=== PATIENT | female | born 1960 | race Caucasian/White ===

== ENCOUNTER 2019-01-02 18:20 | Emergency (ER) | payer SELFPAY ==
[2019-01-02 19:29] LABS: Urine Blood TRACE (NEG); Urine Glucose NEGATIVE (NEG); Urine Protein NEGATIVE (NEG); Urine Specific Gravity <1.005 (1.005-1.030)
[2019-01-02 19:40] LABS: Absolute Lymphocytes (CBC) 2.4 K/uL (0.7-4.9); Absolute Monocytes 0.4 K/uL (0.1-1.3); Absolute Neutrophil 3.7 K/uL (1.8-8.0); Eosinophils % 2.8 % (0-4.4); Hematocrit 39.9 % (36.0-45.0); MPV 8.2 fL (7.6-11.3); RBC Red Blood Cell Count 4.45 M/uL (3.86-4.86)
--- NOTE | 2019-01-02 19:54 | RAD REPORT ---
EXAM DESCRIPTION: Allyson Single View01/02/2019 7:22 pm CLINICAL HISTORY: Chest pain COMPARISON: 2017 FINDINGS: Lungs are hyperaerated. The lungs appear clear of acute infiltrate. The heart is normal size IMPRESSION: No acute abnormalities displayed
[2019-01-02 20:04] LABS: BUN Blood Urea Nitrogen 7 mg/dL (7-18); Bicarbonate 28 mmol/L (21-32); Glucose Level 90 mg/dL (74-106); Potassium 3.3 mmol/L (3.5-5.1); Sodium Level 142 mmol/L (136-145); Troponin (Emerg Dept Use Only) < 0.02 ng/mL (0.0-0.045)
--- NOTE | 2019-01-02 20:13 | RAD REPORT ---
EXAM DESCRIPTION: USExtremity Venous Uni Ltd01/02/2019 8:07 pm CLINICAL HISTORY: Right leg pain COMPARISON: None. FINDINGS: Right common femoral, superficial femoral, popliteal and right posterior tibial veins are compressible and demonstrate augmentation. Doppler demonstrates good flow. IMPRESSION: No evidence of deep venous thrombosis involving the right lower extremity.
--- NOTE | 2019-01-02 21:45 | EDPHYS ---
Physician Documentation [facility] Name: Rosalba Ivy Age: 58 yrs Sex: Female : 1960 Arrival Date: 01/02/2019 Time: 18:21 Bed 7 Private MD: ED Physician Rory Tong HPI: 01/02 22:06 This 58 yrs old Female presents to ER via Ambulatory with complaints of Chest gs Pain, Hip Pain, Leg Pain. 22:06 The patient or guardian reports chest pain that is located primarily in the anterior gs chest wall. Onset: 2 week(s) ago. The pain does not radiate. Associated signs and symptoms: Pertinent negatives: diaphoresis, shortness of breath. The chest pain is described as dull, a heaviness. Duration: The patient or guardian reports multiple episodes, that are intermittent, that wax and wane, with no pattern. Modifying factors: The symptoms are alleviated by nothing. the symptoms are aggravated by nothing. Severity of pain: At its worst the pain was moderate in the emergency department the pain has resolved and did so earlier today. The patient has experienced similar episodes in the past, a few times. also says has pain swelling r lower extremity says she is concerned for dvt. 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 - Social history:: Smoking status: Patient/guardian denies using tobacco, the patient reports quitting approximately 6 years ago. - Ebola Screening: : Patient denies exposure to infectious person Patient denies travel to an Ebola-affected area in the 21 days before illness onset. ROS: 22:06 All other systems are negative. gs Exam: 22:06 Head/Face: Normocephalic, atraumatic. Eyes: Pupils equal round and reactive to light, gs extra-ocular motions intact. Lids and lashes normal. Conjunctiva and sclera are non-icteric and not injected. Cornea within normal limits. Periorbital areas with no swelling, redness, or edema. ENT: Nares patent. No nasal discharge, no septal abnormalities noted. Tympanic membranes are normal and external auditory canals are clear. Oropharynx with no redness, swelling, or masses, exudates, or evidence of obstruction, uvula midline. Mucous membranes moist. Neck: Trachea midline, no thyromegaly or masses palpated, and no cervical lymphadenopathy. Supple, full range of motion without nuchal rigidity, or vertebral point tenderness. No Meningismus. Chest/axilla: Normal chest wall appearance and motion. Nontender with no deformity. No lesions are appreciated. Cardiovascular: Regular rate and rhythm with a normal S1 and S2. No gallops, murmurs, or rubs. Normal PMI, no JVD. No pulse deficits. Respiratory: Lungs have equal breath sounds bilaterally, clear to auscultation and percussion. No rales, rhonchi or wheezes noted. No increased work of breathing, no retractions or nasal flaring. Abdomen/GI: Soft, non-tender, with normal bowel sounds. No distension or tympany. No guarding or rebound. No evidence of tenderness throughout. Back: No spinal tenderness. No costovertebral tenderness. Full range of motion. Skin: Warm, dry with normal turgor. Normal color with no rashes, no lesions, and no evidence of cellulitis. Neuro: Awake and alert, GCS 15, oriented to person, place, time, and situation. Cranial nerves II-XII grossly intact. Motor strength 5/5 in all extremities. Sensory grossly intact. Cerebellar exam normal. Normal gait. 22:06 Constitutional: The patient appears alert, awake. 22:06 Musculoskeletal/extremity: ROM: no acute changes, Pulses: are normal with no appreciated deficits, Sensation intact. DVT Exam: tenderness, that is mild, of the right leg. 22:06 ECG was reviewed by the Attending Physician. Vital Signs: 18:27 BP 140 / 77; Pulse 77; Resp 16; Temp 97.4(TE); Pulse Ox 99% ; Height 5 ft. 6 in. ss (167.64 cm); Pain 4/10; 19:00 BP 135 / 75; Pulse 73; Resp 15; Pulse Ox 100% ; bp 19:28 BP 120 / 90; Pulse 72; Resp 12; Pulse Ox 98% on R/A; mt 20:29 BP 140 / 73; Pulse 72; Resp 21; Pulse Ox 97% on R/A; tl2 21:38 BP 123 / 64; Pulse 62; Resp 13; Pulse Ox 95% on R/A; tl2 22:05 BP 137 / 83; Pulse 62; Resp 10; Pulse Ox 98% on R/A; mt MDM: 19:03 Patient medically screened. 22:06 Differential diagnosis: acute myocardial infarction, coronary artery disease chest wall gs pain, dvt. Data reviewed: vital signs, nurses notes. Data reviewed: lab test result(s), EKG, radiologic studies. Counseling: I had a detailed discussion with the patient and/or guardian regarding: the historical points, exam findings, and any diagnostic results supporting the discharge/admit diagnosis, lab results, radiology results, the need for outpatient follow up. 01/02 19:04 Order name: Urine Dipstick--Ancillary (enter results) [facility] 01/02 19:07 Order name: Troponin (emerg Dept Use Only) 01/02 19:07 Order name: CBC with Diff 01/02 19:07 Order name: Basic Metabolic Panel 01/02 19:29 Order name: Urine Dipstick-Ancillary; Complete Time: 19:46 EDCA 01/02 19:50 Order name: CBC with Automated Diff; Complete Time: 21:41 EDCA 01/02 18:43 Order name: EKG; Complete Time: 18:44 01/02 18:43 Order name: EKG - Nurse/Tech; Complete Time: 18:43 01/02 19:07 Order name: XRAY Chest (1 view) 01/02 19:46 Order name: US Extremity Venous Unilateral Ltd 01/02 19:55 Order name: RAD; Complete Time: 21:41 EDMS 01/02 20:05 Order name: Basic Metabolic Panel; Complete Time: 21:41 EDMS 01/02 20:05 Order name: Troponin (Emerg Dept Use Only); Complete Time: 21:41 EDMS 01/02 20:15 Order name: US; Complete Time: 21:41 EDMS 01/02 19:07 Order name: Cardiac monitoring; Complete Time: 19:30 01/02 19:07 Order name: IV Saline Lock; Complete Time: 19:30 01/02 19:07 Order name: Labs collected and sent; Complete Time: :30 01/02 19:07 Order name: O2 Per Protocol; Complete Time: :30 01/02 19:07 Order name: O2 Sat Monitoring; Complete Time: 19:31 gs EC:06 Rate is 76 beats/min. Rhythm is regular. [place] interval is normal. QRS interval is normal. gs QT interval is normal. T waves are Flattened. Clinical impression: NSR w/ Non-specific ST/T Changes. Interpreted by me. Administered Medications: No medications were administered Disposition: 01/02/19 21:45 Discharged to Home. Impression: Chest pain, unspecified. - Condition is Stable. - Discharge Instructions: Nonspecific Chest Pain. - Medication Reconciliation Form, Thank You Letter, Antibiotic Education, Prescription Opioid Use form. - Follow up: Private Physician; When: 2 - 3 days; Reason: Re-evaluation by your physician. Follow up: Tay Rivera DO; When: 2 - 3 days; Reason: Re-evaluation by your physician. Signatures: Dispatcher [employer] EDMS Shi Salcido RN RN ss Caitlin Blanco RN RN tl2 Rory Tong MD MD Corrections: (The following items were deleted from the chart) 22:27 21:45 01/02/2019 21:45 Discharged to Home. Impression: Chest pain, unspecified. tl2 Condition is Stable. Forms are Medication Reconciliation Form, Thank You Letter, Antibiotic Education, Prescription Opioid Use. Follow up: Private Physician; When: 2 - 3 days; Reason: Re-evaluation by your physician. Follow up: Tay Rivera; When: 2 - 3 days; Reason: Re-evaluation by your physician. gs
--- NOTE | 2019-01-02 21:45 | ER ---
Nurse's Notes [facility] Name: Rosalba Ivy Age: 58 yrs Sex: Female : 1960 Arrival Date: 01/02/2019 Time: 18:21 Bed 7 Private MD: Diagnosis: Chest pain, unspecified Presentation: 01/02 18:26 Presenting complaint: Patient states: intermittent CP x 4-5 days. Pt also reports R hip ss pain that radiates down to R ankle that began 1 day ago with mild swelling. Transition of care: patient was not received from another setting of care. Onset of symptoms was December 28, 2018. Risk Assessment: Do you want to hurt yourself or someone else? Patient reports no desire to harm self or others. Initial Sepsis Screen: Does the patient meet any 2 criteria? No. Patient's initial sepsis screen is negative. Does the patient have a suspected source of infection? No. Patient's initial sepsis screen is negative. Care prior to arrival: None. 18:26 Method Of Arrival: Ambulatory ss 18:26 Acuity: BERNICE 3 ss Triage Assessment: 18:39 General: Appears in no apparent distress. uncomfortable, Behavior is cooperative, bp appropriate for age, anxious. Pain: Complains of pain in chest. 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 - Social history:: Smoking status: Patient/guardian denies using tobacco, the patient reports quitting approximately 6 years ago. - Ebola Screening: : Patient denies exposure to infectious person Patient denies travel to an Ebola-affected area in the 21 days before illness onset. Screenin:39 Abuse screen: Denies threats or abuse. Denies injuries from another. Nutritional bp screening: No deficits noted. Tuberculosis screening: No symptoms or risk factors identified. Fall Risk None identified. Assessment: 18:30 General: Appears in no apparent distress. comfortable, Behavior is cooperative, bp appropriate for age, anxious. Pain: Complains of pain in chest Pain does not radiate. Pain began 2-3 days ago. Neuro: Level of Consciousness is awake, alert, obeys commands, Oriented to person, place, time, situation, Appropriate for age. Cardiovascular: Rhythm is sinus rhythm. Respiratory: Airway is patent Respiratory effort is even, unlabored, Respiratory pattern is regular, symmetrical. GI: No signs and/or symptoms were reported involving the gastrointestinal system. : No signs and/or symptoms were reported regarding the genitourinary system. EENT: No deficits noted. Derm: No deficits noted. Musculoskeletal: Circulation, motion, and sensation intact. Range of motion: intact in all extremities. 19:33 General: Appears in no apparent distress. uncomfortable, Behavior is calm, cooperative, tl2 appropriate for age. Pain: Complains of pain in chest Pain does not radiate. Neuro: Level of Consciousness is awake, alert, obeys commands, Oriented to person, place, time, situation. Cardiovascular: Heart tones S1 S2 present. Respiratory: Airway is patent Respiratory effort is even, unlabored, Respiratory pattern is regular, symmetrical. GI: No signs and/or symptoms were reported involving the gastrointestinal system. : No signs and/or symptoms were reported regarding the genitourinary system. Derm: Skin is pink, warm \T\ dry. 21:38 Reassessment: Patient appears in no apparent distress at this time. Patient and/or tl2 family updated on plan of care and expected duration. Pain level reassessed. Patient is alert, oriented x 3, equal unlabored respirations, skin warm/dry/pink. 22:25 Reassessment: Patient appears in no apparent distress at this time. Patient and/or tl2 family updated on plan of care and expected duration. Pain level reassessed. Patient is alert, oriented x 3, equal unlabored respirations, skin warm/dry/pink. pt verbalized understanding of discharge instructions, need for follow up Patient states feeling better. Vital Signs: 18:27 BP 140 / 77; Pulse 77; Resp 16; Temp 97.4(TE); Pulse Ox 99% ; Height 5 ft. 6 in. ss (167.64 cm); Pain 4/10; 19:00 BP 135 / 75; Pulse 73; Resp 15; Pulse Ox 100% ; bp 19:28 BP 120 / 90; Pulse 72; Resp 12; Pulse Ox 98% on R/A; mt 20:29 BP 140 / 73; Pulse 72; Resp 21; Pulse Ox 97% on R/A; tl2 21:38 BP 123 / 64; Pulse 62; Resp 13; Pulse Ox 95% on R/A; tl2 22:05 BP 137 / 83; Pulse 62; Resp 10; Pulse Ox 98% on R/A; mt Vitals: 21:38 Cardiac Rhythm Assessment Sinus rhythm. tl2 ED Course: 18:21 Patient arrived in ED. as 18:25 Narayan Tompkins, RN is Primary Nurse. bp 18:26 Triage completed. ss 18:27 Arm band placed on right wrist. ss 18:39 Patient has correct armband on for positive identification. Bed in low position. Call bp light in reach. Side rails up X2. inclusion manager on. Pulse ox on. NIBP on. 18:57 Rory Tong MD is Attending Physician. gs 18:58 Urine collected: clean catch specimen, clear, jese colored, EKG done, by ED staff, jb1 reviewed by Dagoberto Steiner MD. 19:17 X-ray completed. Portable x-ray completed in exam room. Patient tolerated procedure ag1 well. 19:31 Inserted saline lock: 22 gauge in right wrist, using aseptic technique. Blood tl2 collected. Patient maintains SpO2 saturation greater than 95% on room air. 20:05 Ultrasound completed. Patient tolerated well. aa4 20:14 Primary Nurse role handed off by Narayan Tompkins RN ed1 20:28 Caitlin Blanco RN is Primary Nurse. tl2 21:43 Tay Rivera DO is Referral Physician. gs 22:25 No provider procedures requiring assistance completed. IV discontinued, intact, tl2 bleeding controlled, No redness/swelling at site. Pressure dressing applied. Administered Medications: No medications were administered Outcome: 21:45 Discharge ordered by . gs 22:25 Discharged to home ambulatory. tl2 22:25 Condition: stable 22:25 Discharge instructions given to patient, Instructed on discharge instructions, follow up and referral plans. Demonstrated understanding of instructions, follow-up care. 22:27 Patient left the ED. tl2 Signatures: Josue Costa jb1 Ximena Remy Amanda aa4 Shi Salcido, RN RN ss Dino, Tia, RN RN ed1 Lou Hobson1 Caitlin Blanco, RN RN tl2 Antonieta Sears mt, Gregory, MD MD gs Narayan Tompkins, RN RN bp
[2019-01-02 23:01] VITALS: TEMP 97.4
[2019-01-02 23:07] VITALS: BP 137/83; O2SAT 98
--- NOTE | 2019-01-03 08:55 | EKG ---
Test Date: 2019-01-02 Test Time: 18:38:26 Piano Maker: MELVIN MEASUREMENT RESULTS: Intervals: Rate: 72 NH: 148 QRSD: 78 QT: 364 QTc: 398 [place]: P: 73 NH: 148 QRS: 25 T: 19 INTERPRETIVE STATEMENTS: Normal sinus rhythm Normal ECG Compared to ECG 03/27/2017 18:24:15 Sinus bradycardia no longer present Electronically Signed On 01-03-19 08:55:04 JEWELRY BEARING MAKER by Yunier Ramírez
== END 2019-01-02 22:27 | disposition home or self-care (01) ==
LOC: ER 18:20
DX: R07.9 Chest pain, unspecified (principal); J44.9 Chronic obstructive pulmonary disease, unspecified; Z88.0 Allergy status to penicillin; Z88.1 Allergy status to other antibiotic agents; Z88.5 Allergy status to narcotic agent; Z88.6 Allergy status to analgesic agent
CPT/HCPCS: 36415; 71045; 80048; 81003; 84484; 85025; 93005; 93971; 99285

== ENCOUNTER 2019-04-04 19:54 | Emergency (ER) | payer SELFPAY ==
[2019-04-04] MEDS ORDERED: IPRATROPIUM BROM 0.5MG/2.5ML ONE (22:17)
[2019-04-04] MEDS ORDERED: ALBUTEROL 2.5 MG/3 ML NEB SOL ONE (22:17)
[2019-04-04 22:38] LABS: Absolute Lymphocytes (CBC) 3.4 K/uL (0.7-4.9); Absolute Monocytes 0.5 K/uL (0.1-1.3); Absolute Neutrophil 3.5 K/uL (1.8-8.0); Basophils % 1.3 % (0-1.3); Eosinophils % 5.9 % (0-4.4); Hematocrit 38.5 % (36.0-45.0); Lymphocytes % 42.9 % (15.3-44.8); MPV 8.5 fL (7.6-11.3); Monocytes % 6.1 % (3.3-12.3); RBC Red Blood Cell Count 4.37 M/uL (3.86-4.86)
[2019-04-04 22:42] LABS: Protime INR 1.01
[2019-04-04 23:55] LABS: ALT/SGPT 20 U/L (12-78); AST/SGOT 23 U/L (15-37); Albumin 3.7 g/dL (3.4-5.0); Alkaline Phosphatase 101 U/L (45-117); BUN Blood Urea Nitrogen 7 mg/dL (7-18); Bicarbonate 28 mmol/L (21-32); Bilirubin Direct < 0.1 mg/dL (0-0.2); Bilirubin Total 0.6 mg/dL (0.2-1.0); Glucose Level 91 mg/dL (74-106); Magnesium 2.3 mg/dL (1.8-2.4); NT PRO-BNP 34 pg/mL (<125); Potassium 3.7 mmol/L (3.5-5.1); Sodium Level 140 mmol/L (136-145); Troponin (Emerg Dept Use Only) < 0.02 ng/mL (0.0-0.045)
[2019-04-05] MEDS ORDERED: predniSONE 20 MG TAB ONE (00:28)
--- NOTE | 2019-04-05 01:05 | ER ---
Nurse's Notes [facility] Name: Rosalba Ivy Age: 58 yrs Sex: Female : 1960 Arrival Date: 04/04/2019 Time: 19:58 Bed 8 Private MD: Diagnosis: Chronic obstructive pulmonary disease with (acute) exacerbation Presentation: 04/04 19:59 Presenting complaint: Patient states: I have been worsening cough , congestion for the la1 last 6 weeks, I also have been feeling hot in the mornings and at night. I take my inhalers and breathing treatments but they are not helping as much as usual. Transition of care: patient was not received from another setting of care. Onset of symptoms was April 04, 2019. Risk Assessment: Do you want to hurt yourself or someone else? Patient reports no desire to harm self or others. Initial Sepsis Screen: Does the patient meet any 2 criteria? No. Patient's initial sepsis screen is negative. Does the patient have a suspected source of infection? No. Patient's initial sepsis screen is negative. Care prior to arrival: None. 19:59 Method Of Arrival: Ambulatory la1 19:59 Acuity: BERNICE 3 la1 Historical: - Allergies: 20:01 Codeine; la1 20:01 HYDROCODONE; la1 20:01 Levofloxacin; la1 20:01 METRONIDAZOLE; la1 20:01 PENICILLINS; la1 20:01 rocuronium; la1 20:01 TETRACYCLINES; la1 20:01 tordal; la1 - PMHx: 20:01 COPD; Emphysema; la1 - Immunization history:: Adult Immunizations up to date. - Social history:: Smoking status: Patient uses tobacco products, denies chronic smoking, but will smoke occasionally. - Ebola Screening: : No symptoms or risks identified at this time. Screenin:40 Abuse screen: Denies threats or abuse. Nutritional screening: No deficits noted. ea Tuberculosis screening: No symptoms or risk factors identified. Fall Risk None identified. Assessment: 21:18 General: Appears uncomfortable, Behavior is calm, cooperative, appropriate for age. ea Pain: Complains of pain in body aches. Neuro: Level of Consciousness is awake, alert, obeys commands, Oriented to person, place, time, situation. Cardiovascular: Patient's skin is warm and dry. Respiratory: Airway is patent Respiratory effort is even, unlabored, Respiratory pattern is regular, symmetrical, Breath sounds with rhonchi bilaterally. Parent/caregiver reports the patient having shortness of breath on exertion cough that is productive, hacking. GI: Abdomen is non-distended. EENT: Reports nasal congestion. Derm: Skin is pink, warm \T\ dry. 22:00 Reassessment: Patient and/or family updated on plan of care and expected duration. Pain ea level reassessed. Patient is alert, oriented x 3, equal unlabored respirations, skin warm/dry/pink. 23:00 Reassessment: Patient and/or family updated on plan of care and expected duration. Pain ea level reassessed. Patient is alert, oriented x 3, equal unlabored respirations, skin warm/dry/pink. 04/05 00:15 Reassessment: Patient appears in no apparent distress at this time. Patient is alert, rr5 oriented x 3, equal unlabored respirations, skin warm/dry/pink. much better compare before as verbalized by the patient Patient states symptoms have improved. 01:10 Reassessment: Patient appears in no apparent distress at this time. Patient is alert, rr5 oriented x 3, equal unlabored respirations, skin warm/dry/pink. discharge instruction given and explained without complaints made. Patient states feeling better. Patient states symptoms have improved. Vital Signs: 04/04 20:01 BP 158 / 82; Pulse 81; Resp 16; Temp 98.6; Pulse Ox 98% on R/A; Weight 58.97 kg; Height la1 5 ft. 5 in. (165.10 cm); 21:39 BP 128 / 58; Pulse 63; Resp 18; Pulse Ox 96% on R/A; ea 22:00 BP 126 / 60; Pulse 66; Resp 19; Pulse Ox 96% on R/A; ea 04/05 00:15 BP 121 / 60; Pulse 73; Resp 16; Pulse Ox 99% on R/A; rr5 01:10 BP 120 / 68; Pulse 67; Resp 20; Temp 97.9; Pulse Ox 98% on R/A; rr5 04/04 20:01 Body Mass Index 21.63 (58.97 kg, 165.10 cm) la1 ED Course: 04/04 19:58 Patient arrived in ED. es 20:00 Triage completed. la1 20:01 Arm band placed on left wrist. la1 21:34 Jorge A Rene, RN is Primary Nurse. rr5 21:35 Anuj Roa PA is PHCP. cp 21:35 Roland Lam MD is Attending Physician. cp 21:40 Patient has correct armband on for positive identification. Bed in low position. Call ea light in reach. Side rails up X 1. Adult w/ patient. 22:00 monitor and storage bin tender on. Pulse ox on. NIBP on. rr5 22:30 Initial lab(s) drawn, by me, by EMS personnel. Inserted saline lock: 20 gauge in left rr5 forearm, using aseptic technique. Blood collected. 22:38 XRAY Chest Pa And Lat (2 Views) In Process Unspecified. EDMT 04/05 01:00 No provider procedures requiring assistance completed. IV discontinued, intact, rr5 bleeding controlled, No redness/swelling at site. Pressure dressing applied. Administered Medications: 04/04 22:13 Drug: Albuterol - atroVENT (3:1) (2.5 mg - 0.5 mg) 3 ml Route: Nebulizer; ea 23:04 Follow up: Response: No adverse reaction 04/05 00:18 Drug: predniSONE 60 mg Route: PO; rr5 01:10 Follow up: Response: No adverse reaction rr5 Outcome: 01:04 Discharge ordered by MD. cp 01:10 Discharged to home ambulatory, with family. rr5 01:10 Condition: stable 01:10 Discharge instructions given to patient, Instructed on discharge instructions, follow up and referral plans. medication usage, Demonstrated understanding of instructions, follow-up care, medications, Prescriptions given X 1. 01:15 Patient left the ED. rr5 Signatures: Dispatcher [employer] EDMT Eliana Koehler Lee RN RN la1 Anuj Roa PA PA cp Antunez, Elena, RN RN Jorge A Rene, RN RN rr5
--- NOTE | 2019-04-05 01:05 | EDPHYS ---
Physician Documentation [facility] Name: Rosalba Ivy Age: 58 yrs Sex: Female : 1960 Arrival Date: 04/04/2019 Time: 19:58 Bed 8 Private MD: ED Physician Roland Lam HPI: 04/04 21:40 This 58 yrs old Female presents to ER via Ambulatory with complaints of cp Congestion, Fever, Breathing Difficulty. 21:40 The patient or guardian reports cough, that is intermittent. cp 21:40 Onset: The symptoms/episode began/occurred 6 week(s) ago. Associated signs and cp symptoms: Pertinent positives: fever, congestion, shortness of breath. Severity of symptoms: in the emergency department the symptoms are unchanged despite home interventions. Historical: - Allergies: 20:01 Codeine; la1 20:01 HYDROCODONE; la1 20:01 Levofloxacin; la1 20:01 METRONIDAZOLE; la1 20:01 PENICILLINS; la1 20:01 rocuronium; la1 20:01 TETRACYCLINES; la1 20:01 tordal; la1 - PMHx: 20:01 COPD; Emphysema; la1 - Immunization history:: Adult Immunizations up to date. - Social history:: Smoking status: Patient uses tobacco products, denies chronic smoking, but will smoke occasionally. - Ebola Screening: : No symptoms or risks identified at this time. ROS: 21:45 Constitutional: Negative for body aches, chills, fever, poor PO intake. cp 21:45 Eyes: Negative for injury, pain, redness, and discharge. cp 21:45 ENT: Negative for drainage from ear(s), ear pain, sore throat, difficulty swallowing, difficulty handling secretions. 21:45 Cardiovascular: Negative for chest pain, edema, palpitations. 21:45 Respiratory: Positive for cough, shortness of breath, wheezing. 21:45 Abdomen/GI: Negative for abdominal pain, nausea, vomiting, and diarrhea. 21:45 : Negative for urinary symptoms. 21:45 Skin: Negative for cellulitis, rash. 21:45 Neuro: Negative for altered mental status, headache, weakness. 21:45 All other systems are negative. Exam: 21:55 Constitutional: The patient appears in no acute distress, alert, awake, cp non-diaphoretic, non-toxic, well developed, well nourished. 21:55 Head/Face: Normocephalic, atraumatic. cp 21:55 Eyes: Pupils equal round and reactive to light, extra-ocular motions intact. Lids and lashes normal. Conjunctiva and sclera are non-icteric and not injected. Cornea within normal limits. Periorbital areas with no swelling, redness, or edema. ENT: Nares patent. No nasal discharge, no septal abnormalities noted. Tympanic membranes are normal and external auditory canals are clear. Oropharynx with no redness, swelling, or masses, exudates, or evidence of obstruction, uvula midline. Mucous membranes moist. Chest/axilla: Normal chest wall appearance and motion. Nontender with no deformity. No lesions are appreciated. 21:55 Cardiovascular: Rate: normal, Rhythm: regular, Edema: is not appreciated, JVD: is not appreciated. 21:55 Respiratory: the patient does not display signs of respiratory distress, Respirations: normal, no use of accessory muscles, no retractions, no splinting, no tachypnea, labored breathing, is not present, Breath sounds: decreased breath sounds, are not appreciated, stridor, is not appreciated, wheezing: is not appreciated. 21:55 Abdomen/GI: Inspection: abdomen appears normal, Palpation: abdomen is soft and non-tender, in all quadrants. 21:55 Back: pain, is absent, ROM is normal. 21:55 Skin: no rash present. 21:55 Neuro: Orientation: to person, place \T\ time. Mentation: is normal, Cerebellar function: is grossly normal, Motor: moves all fours, strength is normal, Sensation: is normal. 04/05 00:45 ECG was reviewed by the Attending Physician. cp Vital Signs: 04/04 20:01 BP 158 / 82; Pulse 81; Resp 16; Temp 98.6; Pulse Ox 98% on R/A; Weight 58.97 kg; Height la1 5 ft. 5 in. (165.10 cm); 21:39 BP 128 / 58; Pulse 63; Resp 18; Pulse Ox 96% on R/A; ea 22:00 BP 126 / 60; Pulse 66; Resp 19; Pulse Ox 96% on R/A; ea 04/05 00:15 BP 121 / 60; Pulse 73; Resp 16; Pulse Ox 99% on R/A; rr5 01:10 BP 120 / 68; Pulse 67; Resp 20; Temp 97.9; Pulse Ox 98% on R/A; rr5 04/04 20:01 Body Mass Index 21.63 (58.97 kg, 165.10 cm) la1 MDM: 04/04 21:35 Patient medically screened. 04/05 01:02 Data reviewed: vital signs, nurses notes, lab test result(s), EKG, radiologic studies, cp plain films. 01:02 Test interpretation: by ED physician or midlevel provider: ECG, plain radiologic cp studies. Counseling: I had a detailed discussion with the patient and/or guardian regarding: the historical points, exam findings, and any diagnostic results supporting the discharge/admit diagnosis, lab results, radiology results, the need for outpatient follow up, a family practitioner, to return to the emergency department if symptoms worsen or persist or if there are any questions or concerns that arise at home. Response to treatment: the patient's symptoms have markedly improved after treatment, VSS. Patient reports symptoms improved with breathing treatment. Will discharge to home for continued monitoring. 04/04 21:42 Order name: Basic Metabolic Panel 04/04 21:42 Order name: CBC with Diff 04/04 21:42 Order name: LFT's 04/04 21:42 Order name: Magnesium 04/04 21:42 Order name: NT PRO-BNP 04/04 21:42 Order name: PT-INR; Complete Time: 00:05 04/04 21:42 Order name: Troponin (emerg Dept Use Only); Complete Time: 00:05 04/04 21:42 Order name: Strep; Complete Time: 00:05 04/04 21:42 Order name: Basic Metabolic Panel; Complete Time: 00:05 EDAZ 04/05 00:05 Interpretation: Normal except: GFR 61. 04/04 21:42 Order name: CBC with Automated Diff; Complete Time: 00:05 EDAZ 04/05 00:05 Interpretation: Normal except: EOSINOPHIL % 5.9. cp 04/04 21:43 Order name: Liver (Hepatic) Function; Complete Time: 00:05 EDMS 04/05 00:06 Interpretation: Normal except: GLOB 4.3; A/G 0.9. cp 04/04 21:43 Order name: Magnesium; Complete Time: 00:05 [facility] 04/04 21:43 Order name: NT PRO-BNP; Complete Time: 00:05 [facility] 04/04 23:29 Order name: Throat Culture [facility] 04/04 21:42 Order name: EKG; Complete Time: 21:43 04/04 21:42 Order name: Cardiac monitoring; Complete Time: 22:36 04/04 21:42 Order name: EKG - Nurse/Tech; Complete Time: 00:19 04/04 21:42 Order name: IV Saline Lock; Complete Time: 22:35 04/04 21:42 Order name: Labs collected and sent; Complete Time: 22:35 04/04 21:42 Order name: O2 Per Protocol; Complete Time: 22:35 04/04 21:42 Order name: O2 Sat Monitoring; Complete Time: 22:35 04/04 21:42 Order name: XRAY Chest Pa And Lat (2 Views) cp EC:45 Rate is 66 beats/min. Rhythm is regular. VT interval is normal. QRS interval is normal. cp QT interval is normal. T waves are Inverted in leads V3, V4. Clinical impression: Abnormal EKG without significant change. Interpreted by me. Reviewed by me. Administered Medications: 04/04 22:13 Drug: Albuterol - atroVENT (3:1) (2.5 mg - 0.5 mg) 3 ml Route: Nebulizer; ea 23:04 Follow up: Response: No adverse reaction 04/05 00:18 Drug: predniSONE 60 mg Route: PO; rr5 01:10 Follow up: Response: No adverse reaction rr5 Disposition: 06:27 Co-signature as Attending Physician, Roland cortes Disposition: 04/05/19 01:04 Discharged to Home. Impression: Chronic obstructive pulmonary disease with (acute) exacerbation. - Condition is Stable. - Discharge Instructions: Chronic Obstructive Pulmonary Disease Exacerbation. - Prescriptions for Prednisone 20 mg Oral Tablet - take 2 tablet by ORAL route once daily for 5 days; 10 tablet. - Medication Reconciliation Form, Thank You Letter, Antibiotic Education, Prescription Opioid Use form. - Follow up: Private Physician; When: 2 - 3 days; Reason: Recheck today's complaints. - Problem is an acute exacerbation. - Symptoms have improved. Signatures: Dispatcher [facility] EDMS Roland Lam MD MD pkl Attema, Lee RN RN la1 Anuj Roa PA PA cp Zainab Cordero, RN RN Jorge A Cazares RN RN rr5 Corrections: (The following items were deleted from the chart) 01:15 01:04 04/05/2019 01:04 Discharged to Home. Impression: Chronic obstructive pulmonary rr5 disease with (acute) exacerbation. Condition is Stable. Forms are Medication Reconciliation Form, Thank You Letter, Antibiotic Education, Prescription Opioid Use. Follow up: Private Physician; When: 2 - 3 days; Reason: Recheck today's complaints. Problem is an acute exacerbation. Symptoms have improved. cp
[2019-04-05 01:48] VITALS: TEMP 98.6
[2019-04-05 01:52] VITALS: BP 121/60; O2SAT 99
--- NOTE | 2019-04-05 08:05 | RAD REPORT ---
EXAM DESCRIPTION: RAD - Chest Pa And Lat (2 Views) - 04/04/2019 10:41 pm CLINICAL HISTORY: Cough, shortness of breath COMPARISON: December 2018 TECHNIQUE: PA and lateral views of the chest were obtained. FINDINGS: The lungs are clear of failure, infiltrate or mass. Interstitial markings are prominent bu t similar to comparison. Trachea is midline. Heart size is normal and central vasculature is within normal limits. No pleural effusion or pneumothorax seen. No acute bony finding noted. No aortic a bnormality. IMPRESSION: Chronic interstitial lung changes with no acute cardiopulmonary finding. No significant change from comparison.
--- NOTE | 2019-04-05 10:06 | EKG ---
Test Date: 2019-04-05 Test Time: 00:35:52 [employer] Consultant: BEBO MEASUREMENT RESULTS: Intervals: Rate: 66 MS: 162 QRSD: 80 QT: 418 QTc: 438 [place]: P: 79 MS: 162 QRS: 48 T: 27 INTERPRETIVE STATEMENTS: Normal sinus rhythm Nonspecific T wave abnormality Abnormal ECG Compared to ECG 01/02/2019 18:38:26 T-wave abnormality now present Electronically Signed On 04-05-19 10:05:18 CDT by Nicola Owens
== END 2019-04-05 01:15 | disposition home or self-care (01) ==
LOC: ER 19:54
DX: J44.1 Chronic obstructive pulmonary disease with (acute) exacerbation (principal); Z88.6 Allergy status to analgesic agent; Z88.1 Allergy status to other antibiotic agents; Z88.5 Allergy status to narcotic agent; Z88.0 Allergy status to penicillin; Z72.0 Tobacco use
CPT/HCPCS: 36415; 71046; 80048; 80076; 83735; 83880; 84484; 85025; 85610; 87070; 87081; 93005; 94640; 99285; J7512